=== PATIENT | male | born 1990 | race Caucasian/White ===

== ENCOUNTER 2024-08-02 09:11 | Outpatient (CLI) | payer OTHER, SELFPAY ==
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
== END 2024-08-02 09:12 | disposition home or self-care (01) ==
LOC: MICIMG 09:16
PROVIDERS: PCP Chiropractor; Visit Provider Chiropractor
DX: M54.2 Cervicalgia (principal)
CPT/HCPCS: 72052

== ENCOUNTER 2025-06-22 11:38 | Outpatient (CLI) | payer OTHER, SELFPAY ==
--- NOTE | ~2025-06-22 | XR_ITS ---
EXAMINATION: XR hand RT min 3V, 06/22/2025 11:43 CDT HISTORY: Third digit pain COMPARISON: No comparisons available. Findings: No acute fracture or malalignment. No significant degenerative changes. Soft tissues unremarkable. Impression: No acute fracture or malalignment. Reviewed, dictated and finalized at location P. Impression: No acute fracture or malalignment.
== END 2025-06-22 11:39 | disposition home or self-care (01) ==
LOC: MICIMG 11:40
PROVIDERS: PCP Internal Medicine; Visit Provider Chiropractor
DX: M79.644 Pain in right finger(s) (principal)
CPT/HCPCS: 73130